=== PATIENT | female | born 1935 | race Caucasian/White ===

== ENCOUNTER 2017-06-08 08:46 | Outpatient (CLI) | payer MEDICARE, BC ==
--- NOTE | 2017-06-08 11:26 | RAD ---
UPPER GI: History: Abdominal pain. Hernia. Obstruction. FINDINGS: There is diminished primary and secondary peristalsis of the esophagus with severe non-compulsive ter tiary type contractions. Small hiatal hernia is present without significant hold up of contrast. A 12 mm barium tablet traversed the esophagus and GE junction without hold up. No evidence of leak. Large amount of gastroesophageal reflux was demonstrated with patient supine. IMPRESSION: Small hiatal hernia. Large amount of gastroesophageal reflux and presbyesophagus. No evidence of obst ruction. POS: [facility]
== END 2017-06-08 08:47 | disposition home or self-care (01) ==
LOC: RAD 08:46
PROVIDERS: ATTEND Internal Medicine Gastroenterology
DX: K44.9 Diaphragmatic hernia without obstruction or gangrene (principal); K21.9 Gastro-esophageal reflux disease without esophagitis; K22.8 Other specified diseases of esophagus; Z98.890 Other specified postprocedural states
CPT/HCPCS: 74241

== ENCOUNTER 2018-02-18 16:30 | Emergency (ER) | payer MEDICARE, BC | END 2018-02-18 16:53 | disposition home or self-care (01) | LOC: ERS 16:30 | DX: R21 Rash and other nonspecific skin eruption (principal); E03.9 Hypothyroidism, unspecified; I10 Essential (primary) hypertension; Z79.899 Other long term (current) drug therapy; Z79.82 Long term (current) use of aspirin | CPT/HCPCS: 99282 ==

== ENCOUNTER 2018-03-08 12:23 | Outpatient (CLI) | payer MEDICARE, BC | END 2018-03-08 12:24 | disposition home or self-care (01) | LOC: BICMAMMO 12:23 | PROVIDERS: ATTEND Internal Medicine Geriatric Medicine | DX: Z12.31 Encounter for screening mammogram for malignant neoplasm of breast (principal); Z98.890 Other specified postprocedural states | CPT/HCPCS: 77063; 77067 ==

== ENCOUNTER 2018-12-27 15:06 | Outpatient (CLI) | payer MEDICARE, BC ==
--- NOTE | 2018-12-27 17:17 | BD ---
DEXA BONE DENSITOMETRY: (Dual energy x-ray absorptiometry) DATE: 12/27/2018 HISTORY: 83-year old white female for age-related, post-menopausal, osteoporosis screening. weight: 108 lbs height: 61 in. age of menopause: 45 COMPARISON: None available. FINDINGS: The bone mineral density (BMD) is given in grams per square centimeter (g/cm2): LUMBAR SPINE: BMD (g/cm^2) T score Z score L1: 0.786 -1.9 0.6 L2: 0.835 -1.8 0.9 L3: 0.860 -2.0 0.8 L4: 0.907 -1.4 1.5 Total: 0.850 -1.8 1.0 HIP: BMD (g/cm^2) T score Z score Femoral neck: 0.589 -2.3 0.0 Total: 0.684 -2.1 0.0 FRAX WHO fracture risk assessment tool: 10 year fracture risk* Major osteoporotic fracture: 15 % Hip fracture: 5.1 % Reported risk factors: [place] (), neck BMD = 0.589 (g/cm^2), BMI = 20.4. *Fracture probability is calculated for an untreated patient. Fracture probability may be lower if th e patient has received treatment. IMPRESSION: 1.) The mean bone mineral density of the lumbar spine is osteopenic. Fracture risk is increased. [place], it is noted that there are sclerotic degenerative changes throughout the lumbar spine, which elevate the bone mineral density. Therefore, the degree of osteopenia/osteoporosis may be underestima abhay, and the fracture risk may be underestimated. 2) The bone mineral density of the femoral neck is osteopenic. Fracture risk is increased.
== END 2018-12-27 15:07 | disposition home or self-care (01) ==
LOC: BICMAMMO 15:06
PROVIDERS: ATTEND Physician Assistant
DX: M81.0 Age-related osteoporosis without current pathological fracture (principal); M85.89 Other specified disorders of bone density and structure, multiple sites
CPT/HCPCS: 77080

== ENCOUNTER 2019-03-09 10:02 | Outpatient (CLI) | payer MEDICARE, BC ==
--- NOTE | 2019-03-09 11:33 | MMO ---
Bilateral MAMMO Bilat Screen [facility]. CLINICAL HISTORY: Patient is 83 years old and is seen for screening. The patient has no family history of breast cancer. The patient has no personal history of cancer. The patient has a history of right Excisional Biopsy in April, - benign and right Excisional Biopsy in 1987 - benign. VIEWS: The views performed were: bilateral craniocaudal with tomosynthesis and bilateral mediolateral oblique with tomosynthesis. FILMS COMPARED: The present examination has been compared to prior imaging studies performed at [facility] on 01/20/2015, 02/12/2016, 02/23/2017 and 03/08/2018. This study has been interpreted with the assistance of computer-aided detection. MAMMOGRAM FINDINGS: The breasts are extremely dense, which may lower the sensitivity of mammography. Finding 1: There is a stable post-surgical scar seen in the right breast. Finding 2: Benign calcifications are noted bilaterally. There are no suspicious masses, suspicious calcifications, or new areas of architectural distortion. IMPRESSION: THERE IS NO MAMMOGRAPHIC EVIDENCE OF MALIGNANCY. A ROUTINE FOLLOW-UP MAMMOGRAM IN 1 YEAR IS RECOMMENDED. THE RESULTS OF THIS EXAM WERE SENT TO THE PATIENT. ACR BI-RADS Category 2 - Benign finding MAMMOGRAPHY NOTE: 1. A negative mammogram report should not delay a biopsy if a dominant of clinically suspicious mass is present. 2. Approximately 10% to 15% of breast cancers are not detected by mammography. 3. Adenosis and dense breasts may obscure an underlying neoplasm. Reported by: EDSON HAAS MD Electonically Signed: [id number]
== END 2019-03-09 10:03 | disposition home or self-care (01) ==
LOC: BICMAMMO 10:02
PROVIDERS: ATTEND Family Medicine
DX: Z12.31 Encounter for screening mammogram for malignant neoplasm of breast (principal)
CPT/HCPCS: 77063; 77067

== ENCOUNTER 2020-02-13 14:07 | Outpatient (CLI) | payer MEDICARE, BC ==
--- NOTE | 2020-02-13 15:31 | RAD ---
LUMBAR SPINE THREE VIEWS: 02/13/20 HISTORY: Low back pain. FINDINGS/IMPRESSION: There are old compression fractures of T12 and L1 vertebrae and mild compression of L2 vertebral body . There is grade 1 retrolisthesis of L1 over L2 and L2 over L3 vertebral bodies. There are degenerati ve changes in the spine. POS: [facility]
== END 2020-02-13 14:08 | disposition home or self-care (01) ==
LOC: BICRAD 14:07
PROVIDERS: ATTEND Family Medicine
DX: M54.5 Low back pain (principal); M47.816 Spondylosis without myelopathy or radiculopathy, lumbar region; M43.16 Spondylolisthesis, lumbar region; S32.018D Other fracture of first lumbar vertebra, subsequent encounter for fracture with routine healing; S22.088D Other fracture of T11-T12 vertebra, subsequent encounter for fracture with routine healing
CPT/HCPCS: 72100

== ENCOUNTER 2020-03-21 12:17 | Outpatient (CLI) | payer MEDICARE, BC ==
--- NOTE | 2020-03-21 13:57 | MRI ---
MRI cervical spine noncontrast: 03/21/2020 HISTORY: 84-year-old female with R 26.81: Gait instability R 29.898: Bilateral leg weakness COMPARISON: None FINDINGS: Exaggerated lordosis. Vertebral body heights are maintained. Multilevel bilateral facet DJD, ranging from mild to moderately severe. No major bone marrow signal abnormality. Grade 1 anterolisthesis of C4 on C5 due to moderate to severe bilateral facet DJD. Retrolisthesis of C5 on C6 due to degenerative disc disease. Mild retrolisthesis of C6 on C7 due to degenerative disc disease. Mild disc space narrowing at C4-5. Moderate disc space narrowing at C5-6. Mild to moderate disc space narrowing at C6-7. Bilateral uncinate process osteophytes encroach upon neural foramina at various levels: Small to moderate size at C4-5, moderate-large at C5-6, moderate-large at C6-7, and small at other le vels. Thickened ligamentum flavum encroaches upon dorsal aspect of spinal canal at C4-5, C5-6, and C6-7. Cervical spinal cord is normal in size. At the far dorsal midline aspect of the spinal cord centered at the C5-6 level, and extending short d istance superiorly and inferiorly, there is a focus of intramedullary T2 hyperintensity measuring 0.8 cm craniocaudal x 0.2 cm AP x 0.3 cm transverse. There is no intramedullary signal abnormality elsewhere. No syrinx. C1-2: No central spinal canal stenosis. C2-3: No central spinal canal stenosis. No right neural foraminal stenosis. Mild to moderate left kirk ral foraminal stenosis. C3-4: Mild central spinal canal stenosis. Mild to moderate right but no left neural foraminal stenosi s. C5-6: Somewhat severe central spinal canal stenosis. Severe bilateral neural foraminal stenosis. C6-7: Moderate to severe central spinal canal stenosis. Severe bilateral neural foraminal stenosis, r ight greater than left. C7-T1: No central spinal canal stenosis. No significant neural foraminal stenosis. IMPRESSION: 1.) Moderate cervical spondylosis, with multilevel bilateral high-grade facet osteoarthrosis, and C5- 6 and C6-7 degenerative disc disease. 2) exaggerated lordosis. 3) high-grade central spinal canal stenosis at C5-6. 4) multilevel high-grade bilateral neural foraminal stenosis, including severe. 5) small focal dorsal midline focus of intramedullary signal abnormality at C5-6, of uncertain etiolo gy and significance.
--- NOTE | 2020-03-21 14:46 | MRI ---
MRI LUMBAR SPINE NONCONTRAST: HISTORY: Gait instability. Chronic back pain. COMPARISON: 07/28/2004. FINDINGS: There is appropriate T1 marrow signal intensity of the lumbar vertebrae. Lumbar spine vertebral body heights are maintained from L2 through L5. There is no evidence of acute fracture. There is no significant STIR hyperintensity from L2 through L5. At the L1 level, there is moderate compression fr acture with mild retropulsion. Minimal STIR hyperintensity likely represent endplate changes. There is a hemangioma along the left aspect of the L1 vertebral body. There is a moderate compression fract ure involving the inferior aspect of T12. There is mild associated edema likely representing reactive changes given sclerosis of the endplate. However, superimposed posttraumatic edema cannot be entirely excluded. There is retropulsion of the T12 vertebral body. The overall loss of vertebral height at T12 and L1 resulting kyphosis. Appropriate signal intensity of the visualized paraspinal muscles and solid organs. Conus medullaris terminates at the mid T12 level. T12-L1:There appears be a posterior decompressive laminectomy. There is mild central canal stenosis p redominantly due to retropulsion of the T12 vertebral body. Moderate to severe bilateral neural foraminal narrowing. L1-L2:Disc desiccation with moderate loss of disc space height. There is moderate central canal steno sis predominantly due to retropulsion of the L1 vertebral body. Severe bilateral neural foraminal narrowing. L2-L3:Disc desiccation with severe loss of disc space height. Broad-based disc bulge and retrolisthes is result in moderate central canal stenosis. Severe bilateral neural foraminal narrowing. L3-L4:Adequate disc hydration. Based disc bulge, ligament flavum thickening and facet hypertrophy are present. There is also a large synovial cyst, measuring 0.7 x 0.7 cm. There is mass effect upon the posterior aspect of the thecal sac. Moderate to severe right and left neural foraminal narrowing. L4-L5:Broad-based disc bulge, ligament flavum thickening and facet hypertrophy. Moderate to severe ce ntral canal stenosis. Fluid in both facet joints. Moderate right and moderate to severe left neural foraminal narrowing. L5-S1:Broad-based disc bulge, ligament flavum thickening and facet hypertrophy result in severe centr al canal stenosis. Moderate to severe bilateral neural foraminal narrowing. Spondylolisthesis: T12-L1: 7 mm of retrolisthesis. L1-L2: 6 mm of retrolisthesis. IMPRESSION: 1. Compression fractures at T12 and L1 as described above. Edema at the T12 level is presumed to be r eactive. However, the possibility of a post traumatic edema cannot be entirely excluded. Correlate for point tenderness. There is retropulsion of T12 and L1 with resultant central canal stenosis as de tailed above. 2. Multilevel significant neural foraminal stenosis and central canal stenosis as detailed above. Transcribed Date/Time: 03/21/2020 2:52 PM
== END 2020-03-21 12:18 | disposition home or self-care (01) ==
LOC: BICMRI 12:17
PROVIDERS: ATTEND Neurological Surgery
DX: M43.16 Spondylolisthesis, lumbar region (principal); R29.898 Other symptoms and signs involving the musculoskeletal system; R26.89 Other abnormalities of gait and mobility; M50.322 Other cervical disc degeneration at C5-C6 level; M47.812 Spondylosis without myelopathy or radiculopathy, cervical region; M48.02 Spinal stenosis, cervical region; M48.07 Spinal stenosis, lumbosacral region; M48.061 Spinal stenosis, lumbar region without neurogenic claudication; M48.05 Spinal stenosis, thoracolumbar region; R60.0 Localized edema; S22.088A Other fracture of T11-T12 vertebra, initial encounter for closed fracture; S32.018A Other fracture of first lumbar vertebra, initial encounter for closed fracture; M40.50 Lordosis, unspecified, site unspecified; R93.89 Abnormal findings on diagnostic imaging of other specified body structures
CPT/HCPCS: 72141; 72148

== ENCOUNTER 2021-11-24 14:02 | Outpatient (CLI) | payer OTHER | END 2021-11-24 14:03 | disposition home or self-care (01) | LOC: DTY/OP 14:02 | PROVIDERS: ATTEND Family Medicine | DX: K31.84 Gastroparesis (principal) | CPT/HCPCS: 97802 ==

== ENCOUNTER 2022-07-07 15:11 | Outpatient (CLI) | payer MEDICARE, BC | END 2022-07-07 15:12 | disposition home or self-care (01) | LOC: BICRAD 15:11 | PROVIDERS: ATTEND Family Medicine | DX: M54.6 Pain in thoracic spine (principal); M40.204 Unspecified kyphosis, thoracic region; M43.8X6 Other specified deforming dorsopathies, lumbar region; M43.8X4 Other specified deforming dorsopathies, thoracic region | CPT/HCPCS: 72072 ==

== ENCOUNTER 2022-08-14 18:16 | Emergency (ER) | payer OTHER, MEDICARE, BC | END 2022-08-14 20:44 | disposition home or self-care (01) | LOC: ERS 18:16 | DX: S20.212A Contusion of left front wall of thorax, initial encounter (principal); E03.9 Hypothyroidism, unspecified; I10 Essential (primary) hypertension; W01.10XA Fall on same level from slipping, tripping and stumbling with subsequent striking against unspecified object, initial encounter | CPT/HCPCS: 71045 ==

== ENCOUNTER 2022-08-23 16:03 | Outpatient (CLI) | payer MEDICARE, BC | END 2022-08-23 16:04 | disposition home or self-care (01) | LOC: BICRAD 16:03 | PROVIDERS: ATTEND Family Medicine | DX: M89.8X1 Other specified disorders of bone, shoulder (principal); M95.8 Other specified acquired deformities of musculoskeletal system; M19.011 Primary osteoarthritis, right shoulder ==

== ENCOUNTER 2022-09-08 10:24 | Outpatient (CLI) | payer MEDICARE, BC | END 2022-09-08 10:25 | disposition home or self-care (01) | LOC: BICMAMMO 10:24 | PROVIDERS: ATTEND Family Medicine | DX: M81.0 Age-related osteoporosis without current pathological fracture (principal); M85.88 Other specified disorders of bone density and structure, other site | CPT/HCPCS: 77080 ==

== ENCOUNTER 2022-10-27 08:11 | Emergency (ER) | payer MEDICARE, BC ==
[2022-10-27 09:17] LABS: #Monocytes 0.7 thou/uL (0.11-0.59); #Neutrophils 4.7 thou/uL (1.40-6.50); %Eosinophils 0.3 % (0.0-10.0); %Lymphocytes 9.9 % (21.0-51.0); %Monocytes 11.2 % (0.0-10.0); %Neutrophils 78.3 % (42.0-75.0); Mean Corpuscular HGB CONC 32.5 g/dL (32.0-36.0); Mean Corpuscular Hemoglobin 31.8 pg (27.0-31.0); Mean Corpuscular Volume 97.7 fl (78.0-98.0); Mean Platelet Volume 9.8 fL (7.4-10.4); Platelet Count 264 10x3/uL (130-400); Red Blood Cell (RBC) Count 3.46 mill/uL (4.20-5.40)
[2022-10-27 09:43] LABS: ALT (SGPT) 14 U/L (8-55); AST (SGOT) 20 U/L (5-34); Albumin 3.5 g/dL (3.4-4.8); Alkaline Phosphatase 96 U/L (40-110); Anion Gap 11 mmol/L (10-20); BUN (Urea Nitrogen) 11 mg/dL (9.8-20.1); Bilirubin, Total 0.6 mg/dL (0.2-1.2); Calc. Creatinine Clearance 0 mL/min (70-130); Calcium 8.2 mg/dL (7.8-10.44); Carbon Dioxide 24 mmol/L (23-31); Chloride 104 mmol/L (98-107); Estimated GFR 86; Globulin 2.4 g/dL (2.4-3.5); Glucose 100 mg/dL (83-110); Lipase 30 U/L (8-78); Magnesium 1.9 mg/dL (1.6-2.6); Potassium 3.6 mmol/L (3.5-5.1); Protein, Total 5.9 g/dL (5.8-8.1); Sodium 135 mmol/L (136-145)
[2022-10-27] MEDS ORDERED: Iopamidol-370 76% 500 ML MDV (1 ML CHARGE) ONE (12:25)
== END 2022-10-27 12:40 | disposition home or self-care (01) ==
LOC: ERS 08:11
DX: K52.9 Noninfective gastroenteritis and colitis, unspecified (principal); E03.9 Hypothyroidism, unspecified; I10 Essential (primary) hypertension
CPT/HCPCS: 36415; 74177; 80053; 83690; 83735; 85025; Q9967

== ENCOUNTER 2022-11-15 15:37 | Outpatient (CLI) | payer MEDICARE, BC | END 2022-11-15 15:38 | disposition home or self-care (01) | LOC: RAD 15:37 | PROVIDERS: ATTEND Family Medicine | DX: I31.39 Other pericardial effusion (noninflammatory) (principal); J90 Pleural effusion, not elsewhere classified | CPT/HCPCS: 71046 ==

== ENCOUNTER 2023-02-25 10:49 | Inpatient (IN) | payer MEDICARE, BC ==
[2023-02-25 12:24] LABS: #Monocytes 0.6 thou/uL (0.11-0.59); #Neutrophils 4.7 thou/uL (1.40-6.50); %Basophils 0.3 % (0.0-1.0); %Eosinophils 0.3 % (0.0-10.0); %Lymphocytes 8.2 % (21.0-51.0); %Monocytes 9.5 % (0.0-10.0); %Neutrophils 81.4 % (42.0-75.0); Hematocrit 34.5 % (36.0-47.0); Hemoglobin 11.4 g/dL (12.0-16.0); Mean Corpuscular Hemoglobin 32.4 pg (27.0-31.0); Platelet Count 227 10x3/uL (130-400); RBC Distribution Width 13.2 % (11.5-14.5); Red Blood Cell (RBC) Count 3.52 mill/uL (4.20-5.40); White Blood Cell (WBC) Count 5.8 10x3/uL (4.8-10.8)
[2023-02-25 12:47] LABS: ALT (SGPT) 16 U/L (8-55); AST (SGOT) 23 U/L (5-34); Albumin 3.5 g/dL (3.4-4.8); Alkaline Phosphatase 104 U/L (40-110); Anion Gap 14 mmol/L (10-20); BUN (Urea Nitrogen) 14 mg/dL (9.8-20.1); Bilirubin, Total 0.3 mg/dL (0.2-1.2); Calc. Creatinine Clearance 0 mL/min (70-130); Calcium 8.2 mg/dL (7.8-10.44); Carbon Dioxide 24 mmol/L (23-31); Chloride 104 mmol/L (98-107); Estimated GFR 88; Globulin 2.5 g/dL (2.4-3.5); Glucose 99 mg/dL (83-110); Potassium 3.3 mmol/L (3.5-5.1); Sodium 139 mmol/L (136-145)
[2023-02-25 12:52] LABS: Troponin I 0.098 ng/mL (< 0.028)
[2023-02-25] MEDS ORDERED: Iopamidol-370 76% 500 ML MDV (1 ML CHARGE) ONE (14:06)
[2023-02-25] MEDS ORDERED: Potassium Chloride 20 MEQ TAB PO SCH (18:30)
[2023-02-25] MEDS ORDERED: hydrALAZINE 20 MG/ML VIAL SLOW IVP PRN (18:39)
[2023-02-25 18:45] LABS: Troponin I 0.085 ng/mL (< 0.028)
[2023-02-25 21:42] VITALS: BMI 16.2
[2023-02-25] MEDS: Ondansetron PF 4 MG/2 ML Vial IVP PRN (21:51)
[2023-02-26 04:20] LABS: #Monocytes 0.7 thou/uL (0.11-0.59); #Neutrophils 3.7 thou/uL (1.40-6.50); %Basophils 0.6 % (0.0-1.0); %Eosinophils 0.8 % (0.0-10.0); %Lymphocytes 14.9 % (21.0-51.0); %Monocytes 13.2 % (0.0-10.0); %Neutrophils 70.1 % (42.0-75.0); Hematocrit 32.9 % (36.0-47.0); Hemoglobin 10.9 g/dL (12.0-16.0); Mean Corpuscular HGB CONC 33.1 g/dL (32.0-36.0); Mean Corpuscular Hemoglobin 32.5 pg (27.0-31.0); Mean Corpuscular Volume 98.2 fl (78.0-98.0); Platelet Count 234 10x3/uL (130-400); RBC Distribution Width 13.2 % (11.5-14.5); Red Blood Cell (RBC) Count 3.35 mill/uL (4.20-5.40); White Blood Cell (WBC) Count 5.2 10x3/uL (4.8-10.8)
[2023-02-26 04:57] LABS: Anion Gap 10 mmol/L (10-20); BUN (Urea Nitrogen) 11 mg/dL (9.8-20.1); Calc. Creatinine Clearance 46 mL/min (70-130); Calcium 8.2 mg/dL (7.8-10.44); Carbon Dioxide 28 mmol/L (23-31); Chloride 102 mmol/L (98-107); Estimated GFR 89; Glucose 90 mg/dL (83-110); Magnesium 1.7 mg/dL (1.6-2.6); Potassium 3.5 mmol/L (3.5-5.1); Sodium 136 mmol/L (136-145)
[2023-02-26] MEDS: Furosemide 20 MG/2 ML VIAL SLOW IVP SCH (09:27)
[2023-02-26] MEDS: Ondansetron PF 4 MG/2 ML Vial IVP PRN (09:27)
[2023-02-26] MEDS: Montelukast Sodium 10 mg Tablet PO SCH (20:50)
[2023-02-26] MEDS: Trospium 20 MG TAB PO SCH (20:50)
[2023-02-26] MEDS ORDERED: Communication Order-Pharmacy FS SCH (21:28)
[2023-02-26] MEDS ORDERED: Metoprolol Tartrate 25 MG TAB PO SCH (21:45)
[2023-02-26 22:19] LABS: Hematocrit 31.7 % (36.0-47.0); Hemoglobin 10.3 g/dL (12.0-16.0); Platelet Count 229 10x3/uL (130-400)
[2023-02-27 02:25] LABS: #Eosinphils 0.1 thou/uL (0.0-0.7); #Monocytes 0.6 thou/uL (0.11-0.59); %Basophils 0.4 % (0.0-1.0); %Eosinophils 1.5 % (0.0-10.0); %Lymphocytes 19.8 % (21.0-51.0); %Neutrophils 64.9 % (42.0-75.0); Hematocrit 32.7 % (36.0-47.0); Hemoglobin 10.7 g/dL (12.0-16.0); Mean Corpuscular HGB CONC 32.7 g/dL (32.0-36.0); Mean Corpuscular Hemoglobin 32.5 pg (27.0-31.0); Mean Corpuscular Volume 99.4 fl (78.0-98.0); Mean Platelet Volume 9.7 fL (7.4-10.4); Platelet Count 220 10x3/uL (130-400); RBC Distribution Width 13.2 % (11.5-14.5); Red Blood Cell (RBC) Count 3.29 mill/uL (4.20-5.40); White Blood Cell (WBC) Count 4.6 10x3/uL (4.8-10.8)
[2023-02-27 02:57] LABS: Anion Gap 12 mmol/L (10-20); BUN (Urea Nitrogen) 15 mg/dL (9.8-20.1); Calcium 8.1 mg/dL (7.8-10.44); Carbon Dioxide 27 mmol/L (23-31); Chloride 102 mmol/L (98-107); Glucose 91 mg/dL (83-110); Potassium 3.5 mmol/L (3.5-5.1); Sodium 137 mmol/L (136-145)
[2023-02-27 03:08] LABS: Calc. Creatinine Clearance 41 mL/min (70-130); Estimated GFR 87
[2023-02-27] MEDS: Levothyroxine Sodium 100 MCG TAB PO SCH (05:50)
[2023-02-27] MEDS: Metoprolol Tartrate 25 MG TAB PO SCH ×2 (09:21→20:43)
[2023-02-27] MEDS: Trospium 20 MG TAB PO SCH ×2 (09:21→20:43)
[2023-02-27] MEDS: Furosemide 20 MG/2 ML VIAL SLOW IVP SCH (09:21)
[2023-02-27] MEDS: Sertraline 25 MG TAB PO SCH (09:21)
[2023-02-27] MEDS: Famotidine 20 MG TAB PO SCH (09:21)
[2023-02-27] MEDS: Cholestyramine/Aspartame 4 gm Packet PO SCH (09:21)
[2023-02-27] MEDS ORDERED: traMADol HCl 50 MG TAB PO PRN (15:32)
[2023-02-27] MEDS ORDERED: Ondansetron ODT 4 MG TAB PO PRN (15:32)
[2023-02-27] MEDS: Montelukast Sodium 10 mg Tablet PO SCH (20:43)
[2023-02-28 05:05] LABS: Anion Gap 14 mmol/L (10-20); BUN (Urea Nitrogen) 19 mg/dL (9.8-20.1); Calc. Creatinine Clearance 43 mL/min (70-130); Calcium 8.1 mg/dL (7.8-10.44); Carbon Dioxide 26 mmol/L (23-31); Chloride 100 mmol/L (98-107); Estimated GFR 88; Glucose 84 mg/dL (83-110); Potassium 3.4 mmol/L (3.5-5.1); Sodium 137 mmol/L (136-145)
[2023-02-28] MEDS: Levothyroxine Sodium 100 MCG TAB PO SCH (05:59)
[2023-02-28] MEDS: Famotidine 20 MG TAB PO SCH (09:11)
[2023-02-28] MEDS: Sertraline 25 MG TAB PO SCH (09:11)
[2023-02-28] MEDS: Raloxifene 60 MG TAB PO SCH (09:11)
[2023-02-28] MEDS: Trospium 20 MG TAB PO SCH ×2 (09:11→21:50)
[2023-02-28] MEDS: Cholestyramine/Aspartame 4 gm Packet PO SCH (09:11)
[2023-02-28] MEDS: Cholecalciferol 1,000 UNITS (25 MCG) TAB PO SCH (09:11)
[2023-02-28] MEDS: Metoprolol Tartrate 25 MG TAB PO SCH (09:11)
[2023-02-28] MEDS: Furosemide 20 MG/2 ML VIAL SLOW IVP SCH (09:12)
[2023-02-28] MEDS ORDERED: Potassium Chloride 20 MEQ TAB PO SCH (12:00)
[2023-02-28] MEDS: Montelukast Sodium 10 mg Tablet PO SCH (21:50)
[2023-02-28] MEDS: Apixaban 2.5 MG TAB PO SCH (21:51)
[2023-03-01 03:57] LABS: Hematocrit 35.6 % (36.0-47.0); Platelet Count 280 10x3/uL (130-400)
[2023-03-01 04:23] LABS: Anion Gap 12 mmol/L (10-20); BUN (Urea Nitrogen) 22 mg/dL (9.8-20.1); Calc. Creatinine Clearance 43 mL/min (70-130); Calcium 8.4 mg/dL (7.8-10.44); Carbon Dioxide 27 mmol/L (23-31); Chloride 100 mmol/L (98-107); Estimated GFR 88; Glucose 89 mg/dL (83-110); Potassium 3.7 mmol/L (3.5-5.1); Sodium 135 mmol/L (136-145)
[2023-03-01] MEDS: Levothyroxine Sodium 100 MCG TAB PO SCH (06:02)
[2023-03-01] MEDS ORDERED: Furosemide 40 MG TAB PO SCH (07:30)
[2023-03-01] MEDS ORDERED: Potassium Bicarbonate/Cit Ac 20 MEQ TAB PO SCH (08:00)
[2023-03-01] MEDS ORDERED: Nebivolol HCl 5 MG TAB PO SCH (09:00)
[2023-03-01] MEDS: Cholestyramine/Aspartame 4 gm Packet PO SCH (10:08)
[2023-03-01] MEDS: Trospium 20 MG TAB PO SCH (10:09)
[2023-03-01] MEDS: Raloxifene 60 MG TAB PO SCH (10:09)
[2023-03-01] MEDS: Apixaban 2.5 MG TAB PO SCH (10:09)
[2023-03-01] MEDS: Famotidine 20 MG TAB PO SCH (10:09)
[2023-03-01] MEDS: Sertraline 25 MG TAB PO SCH (10:09)
[2023-03-01] MEDS: Cholecalciferol 1,000 UNITS (25 MCG) TAB PO SCH (10:09)
[2023-03-01 11:53] VITALS: BP 129/67; TEMP 98.2
== END 2023-03-01 15:26 | DRG 280 ==
LOC: ERS 10:49 → 2NO 16:53 → T4-A 02-26 20:54 → 2NO 02-26 23:18
PROVIDERS: ADMIT Internal Medicine; ATTEND Family Medicine
DX: I11.0 Hypertensive heart disease with heart failure (principal); E43 Unspecified severe protein-calorie malnutrition; I21.A1 Myocardial infarction type 2; J96.01 Acute respiratory failure with hypoxia; I50.33 Acute on chronic diastolic (congestive) heart failure; R64 Cachexia; Z68.1 Body mass index [BMI] 19.9 or less, adult; I31.39 Other pericardial effusion (noninflammatory); E03.9 Hypothyroidism, unspecified; F32.A Depression, unspecified; M40.209 Unspecified kyphosis, site unspecified; R91.1 Solitary pulmonary nodule; K31.84 Gastroparesis; I08.1 Rheumatic disorders of both mitral and tricuspid valves; K21.9 Gastro-esophageal reflux disease without esophagitis; I48.0 Paroxysmal atrial fibrillation; N32.81 Overactive bladder; D64.9 Anemia, unspecified; F39 Unspecified mood [affective] disorder; M81.0 Age-related osteoporosis without current pathological fracture; Z90.49 Acquired absence of other specified parts of digestive tract; Z98.890 Other specified postprocedural states; Z79.82 Long term (current) use of aspirin; Z79.899 Other long term (current) drug therapy
CPT/HCPCS: 36415; 71045; 71275; 80048; 80053; 83735; 83880; 84439; 84443; 84484; 85014; 85018; 85025; 85049; 85520; 93005; 93306; J0360; J1650; J1940; J2405; Q9967

== ENCOUNTER 2023-03-04 16:15 | Emergency (ER) | payer MEDICARE ==
[2023-03-04 17:04] LABS: #Basophils 0.1 thou/uL (0.0-0.2); #Eosinphils 0.1 thou/uL (0.0-0.7); #Monocytes 0.8 thou/uL (0.11-0.59); #Neutrophils 7.5 thou/uL (1.40-6.50); %Basophils 0.5 % (0.0-1.0); %Eosinophils 0.7 % (0.0-10.0); %Monocytes 8.1 % (0.0-10.0); %Neutrophils 78.9 % (42.0-75.0); Hematocrit 36.5 % (36.0-47.0); Hemoglobin 12.1 g/dL (12.0-16.0); Mean Corpuscular HGB CONC 33.2 g/dL (32.0-36.0); Mean Corpuscular Hemoglobin 32.5 pg (27.0-31.0); Mean Corpuscular Volume 98.1 fl (78.0-98.0); Mean Platelet Volume 10.2 fL (7.4-10.4); Platelet Count 313 10x3/uL (130-400); RBC Distribution Width 13.2 % (11.5-14.5); Red Blood Cell (RBC) Count 3.72 mill/uL (4.20-5.40); White Blood Cell (WBC) Count 9.5 10x3/uL (4.8-10.8)
[2023-03-04 17:18] LABS: PTT 27.9 sec (22.9-36.1); Prothrombin Time 13.2 sec (12.0-14.7)
[2023-03-04 17:27] LABS: ALT (SGPT) 22 U/L (8-55); AST (SGOT) 26 U/L (5-34); Alkaline Phosphatase 109 U/L (40-110); Anion Gap 15 mmol/L (10-20); BUN (Urea Nitrogen) 24 mg/dL (9.8-20.1); Bilirubin, Total 0.3 mg/dL (0.2-1.2); Calc. Creatinine Clearance 0 mL/min (70-130); Calcium 8.8 mg/dL (7.8-10.44); Carbon Dioxide 27 mmol/L (23-31); Chloride 97 mmol/L (98-107); Estimated GFR 83; Globulin 2.6 g/dL (2.4-3.5); Glucose 90 mg/dL (83-110); Potassium 4.5 mmol/L (3.5-5.1); Protein, Total 6.6 g/dL (5.8-8.1); Sodium 134 mmol/L (136-145)
[2023-03-04] MEDS ORDERED: HYDROcodone/Acetaminophen 5/325 mg Tablet ONE (19:37)
== END 2023-03-05 02:26 | disposition home or self-care (01) ==
LOC: ERS 16:15
DX: S09.90XA Unspecified injury of head, initial encounter (principal); M25.551 Pain in right hip; E03.9 Hypothyroidism, unspecified; I10 Essential (primary) hypertension; Z79.01 Long term (current) use of anticoagulants; Z79.899 Other long term (current) drug therapy; W18.30XA Fall on same level, unspecified, initial encounter
CPT/HCPCS: 36415; 70450; 71045; 72125; 72170; 72192; 80053; 85025; 85610; 85730; 93005

== ENCOUNTER 2023-05-12 10:15 | Outpatient (CLI) | payer MEDICARE, BC | END 2023-05-12 10:16 | disposition home or self-care (01) | LOC: PET 10:15 | PROVIDERS: ATTEND Family Medicine | DX: R91.1 Solitary pulmonary nodule (principal) | CPT/HCPCS: 78816; A9552 ==